=== PATIENT | male | born 1970 | race Caucasian/White ===

== ENCOUNTER → 2022-02-10 | Outpatient (CLI) | payer BC ==
--- NOTE | 2022-02-10 21:42 | MR ---
EXAMINATION TYPE: MR shoulder RT wo con DATE OF EXAM: 02/10/2022 COMPARISON: Outside right shoulder x-ray January 29, 2022 HISTORY: Chronic right shoulder pain. TECHNIQUE: Multiplanar, multisequence imaging of the right shoulder is performed without contrast. FINDINGS: Rotator Cuff: Distal supraspinatus and infraspinatus tendons are intact. Some increased signal distal ly. Rotator cuff muscle bulk is preserved. Acromioclavicular Joint: Mild narrowing with moderate capsular hypertrophy. Some mass effect on the s upraspinatus tendon near myotendinous junction. Glenohumeral Joint: Small to moderate size joint effusion. Synovial thickening inferiorly. Moderate n arrowing suspected. No significant spurring. Labrum: Increased signal superior labrum suggestive of degenerative tearing. Biceps Tendon: The long head of biceps is in normal location within bicipital groove. Bone marrow signal: Subchondral cystic change involving the inferior osseous glenoid. Other: No additional significant abnormality is appreciated. IMPRESSION: 1. Some tendinosis of distal supraspinatus and infraspinatus tendon. No tear is seen. 2. Degenerative changes as detailed above. Correlate for underlying impingement.
== END | disposition home or self-care (01) ==
LOC: RADMRIMAIN 19:10
PROVIDERS: ATTEND Orthopaedic Surgery
DX: M19.011 Primary osteoarthritis, right shoulder (principal); M67.811 Other specified disorders of synovium, right shoulder

== ENCOUNTER → 2022-03-31 | Outpatient (CLI) | payer BC ==
[2022-03-31 14:25] LABS: Basophils # (A) 0.1 k/uL (0-0.2); Basophils % (A) 1 %; Eosinophils # (A) 0.1 k/uL (0-0.7); Eosinophils % (A) 2 %; HCT 44.9 % (39.0-53.0); HGB 15.1 gm/dL (13.0-17.5); Lymphocytes # (A) 2.4 k/uL (1.0-4.8); Lymphocytes % (A) 36 %; MCH 32.2 pg (25.0-35.0); MCHC 33.6 g/dL (31.0-37.0); Mean Platelet Volume 7.7; Monocytes # (A) 0.3 k/uL (0-1.0); Monocytes % (A) 5 %; Neutrophils # (A) 3.7 k/uL (1.3-7.7); Neutrophils % (A) 55 %; Platelet Count 172 k/uL (150-450); RBC 4.67 m/uL (4.30-5.90); RDW 12.3 % (11.5-15.5); WBC 6.6 k/uL (3.8-10.6)
== END | disposition home or self-care (01) ==
LOC: LAB 13:36
PROVIDERS: ATTEND Orthopaedic Surgery
DX: Z01.818 Encounter for other preprocedural examination (principal); I10 Essential (primary) hypertension; I49.3 Ventricular premature depolarization; R94.31 Abnormal electrocardiogram [ECG] [EKG]
CPT/HCPCS: 80051; 85025; 93005